=== PATIENT | female | born 1950 | race Caucasian/White ===

== ENCOUNTER 2024-09-16 04:09 | Inpatient (IN) | payer OTHER, BC ==
[2024-09-16 04:21] VITALS: BMI 32.3
[2024-09-16] MEDS ORDERED: ACETAMINOPHEN INJECTION 100 ML ONE (04:49)
[2024-09-16] MEDS ORDERED: FAMOTIDINE 20 MG/50 ML IVPB 20 MG/50 ML MG IVPB ONE (04:50)
[2024-09-16] MEDS ORDERED: ONDANSETRON 4 MG/2 ML VIAL ONE (04:50)
[2024-09-16] MEDS: ACETAMINOPHEN 1000 MG/100 ML BAG IVPB ONE (05:19)
[2024-09-16] MEDS: ONDANSETRON 4 MG/2 ML VIAL IVPUSH ONE (05:20)
[2024-09-16] MEDS: FAMOTIDINE 20 MG/50 ML IVPB 20 MG/50 ML MG IVPB ONE (05:20)
[2024-09-16] MEDS: LACTATED RINGERS SOLUTION 1000 ML INFUS.BAG IV ONE (05:24)
[2024-09-16 05:48] LABS: BASO % 1.2 % (0-2.0); EOS % 0.3 % (0-4.5); HEMATOCRIT 38.8 % (32.4-45.2); HEMOGLOBIN 12.7 GM/dL (10.7-15.3); LYMPH % 14.9 % (8-40); MCH 26.3 pg (25.7-33.7); MCHC 32.8 g/dl (32.0-36.0); MEAN CELL VOLUME 80.4 fl (80-96); MEAN PLT VOLUME 8.3 fl (7.5-11.1); MONO % 7.5 % (3.8-10.2); NEUT % 76.1 % (42.8-82.8); PLATELET COUNT 313 10^3/uL (134-434); RBC 4.83 M/mm3 (3.60-5.2); RDW 14.4 % (11.6-15.6); WHITE BLOOD COUNT 15.1 K/mm3 (4.0-10.0)
[2024-09-16 06:04] LABS: INR 1.08 (0.83-1.09); PROTHROMBIN TIME (PATIENT) 12.2 SEC (9.7-13.0)
[2024-09-16 06:07] LABS: ACTIVATED PTT 28.3 SECONDS (25.2-36.5)
[2024-09-16 06:08] LABS: POTASSIUM 3.9 mmol/L (3.5-5.1)
[2024-09-16 06:10] LABS: BLOOD UREA NITROGEN 27.6 mg/dL (7-18); CALCIUM 11.3 mg/dL (8.5-10.1); MAGNESIUM 1.8 mg/dL (1.8-2.4)
[2024-09-16 06:12] LABS: ALBUMIN 4.3 g/dl (3.4-5.0)
[2024-09-16 06:13] LABS: CREATININE 0.9 mg/dL (0.55-1.3)
[2024-09-16 06:15] LABS: BILIRUBIN,TOTAL 0.9 mg/dL (0.2-1); TOT PROT 8.1 g/dl (6.4-8.2)
[2024-09-16] MEDS ORDERED: METOCLOPRAMIDE HCL INJECTION 10 MG/2 ML VIAL ONE (06:52)
[2024-09-16] MEDS: METOCLOPRAMIDE HCL INJECTION 10 MG/2 ML VIAL IVPB ONE (06:57)
[2024-09-16 08:36] LABS: EPI CELLS 5 /uL (0-25.1); HYALINE CASTS 1 /uL (0-3.1); PH,URINE 5.5 (5.0-8.0); URINE APPEARANCE CLEAR; URINE BACTERIA 9 /uL (0-1359); URINE BILIRUBIN NEGATIVE (NEGATIVE); URINE COLOR YELLOW; URINE GLUCOSE (UA) NEGATIVE (NEGATIVE); URINE KETONE NEGATIVE (NEGATIVE); URINE LEUK ESTERASE TRACE (NEGATIVE); URINE NITRITE NEGATIVE (NEGATIVE); URINE PROTEIN NEGATIVE (NEGATIVE); URINE RBC 11 /uL (0-23.9); URINE UROBILINOGEN 0.2 mg/dL (0.2-1.0); URINE WBC 23 /uL (0-25.8)
[2024-09-16] MEDS ORDERED: ONDANSETRON 4 MG/2 ML VIAL IVPUSH PRN (10:39)
[2024-09-16] MEDS ORDERED: PIPERACILLIN/TAZOB 4.5 GM 4.5 GM/100 ML BAG IVPB ONE (10:49)
[2024-09-16] MEDS ORDERED: ACETAMINOPHEN 500 MG TABLET (FP) ONE (10:58)
[2024-09-16] MEDS ORDERED: PIPERACILLIN/TAZOB 4.5 GM 4.5 GM in DEXTROSE 5%-WATER 100 ML IVPB SCH (11:00)
[2024-09-16] MEDS: LACTATED RINGERS SOLUTION 1,000 ML/1,000 ML INFUS.BAG IV SCH (11:03)
[2024-09-16] MEDS: PIPERACILLIN/TAZOB 4.5 GM 4.5 GM in DEXTROSE 5%-WATER 100 ML IVPB SCH (11:03)
[2024-09-16] MEDS: ACETAMINOPHEN 500 MG TABLET (FP) PO PRN (11:03)
[2024-09-16] MEDS ORDERED: CEFTRIAXONE 1 G/50 ML PREMIX 50 ML IVPB ONE ×2 (11:05→11:10)
[2024-09-16] MEDS: CEFTRIAXONE 1 G/50 ML PREMIX 50 ML IVPB SCH (11:18)
[2024-09-16] MEDS ORDERED: MORPHINE SULFATE 2 MG/ML SYRINGE ONE (12:40)
[2024-09-17 09:32] LABS: HEMATOCRIT 35.6 % (32.4-45.2); HEMOGLOBIN 11.7 GM/dL (10.7-15.3); MCH 26.4 pg (25.7-33.7); MCHC 32.9 g/dl (32.0-36.0); MEAN CELL VOLUME 80.3 fl (80-96); MEAN PLT VOLUME 8.2 fl (7.5-11.1); PLATELET COUNT 283 10^3/uL (134-434); RBC 4.43 M/mm3 (3.60-5.2); RDW 14.2 % (11.6-15.6); WHITE BLOOD COUNT 12.2 K/mm3 (4.0-10.0)
[2024-09-17 09:46] LABS: POTASSIUM 3.8 mmol/L (3.5-5.1)
[2024-09-17 09:49] LABS: CALCIUM 10.2 mg/dL (8.5-10.1); MAGNESIUM 1.6 mg/dL (1.8-2.4)
[2024-09-17 09:50] LABS: BLOOD UREA NITROGEN 11.1 mg/dL (7-18)
[2024-09-17 09:53] LABS: CREATININE 0.9 mg/dL (0.55-1.3); PHOSPHOROUS 2.7 mg/dL (2.5-4.9)
[2024-09-17] MEDS: ACETAMINOPHEN 1000 MG/100 ML BAG IVPB PRN (14:30)
[2024-09-17] MEDS: MAGNESIUM 1GM/D5W 100ML - 100 ML IVPB IVPB ONE (20:15)
[2024-09-18 07:38] LABS: HEMATOCRIT 34.3 % (32.4-45.2); HEMOGLOBIN 11.2 GM/dL (10.7-15.3); MCH 26.5 pg (25.7-33.7); MCHC 32.6 g/dl (32.0-36.0); MEAN PLT VOLUME 8.2 fl (7.5-11.1); PLATELET COUNT 255 10^3/uL (134-434); RBC 4.23 M/mm3 (3.60-5.2); RDW 14.1 % (11.6-15.6); WHITE BLOOD COUNT 10.2 K/mm3 (4.0-10.0)
[2024-09-18 07:56] LABS: MAGNESIUM 1.9 mg/dL (1.8-2.4)
[2024-09-18 08:00] LABS: PHOSPHOROUS 2.8 mg/dL (2.5-4.9)
[2024-09-18 09:10] VITALS: BP 132/59; PULSE 82; RESP 17; TEMP 98.1
[2024-09-18] MEDS: MAGNESIUM OXIDE 400 MG TABLET (FP) PO ONE (10:13)
[2024-09-18] MEDS ORDERED: metroNIDAZOLE 250 MG TABLET PO SCH (14:00)
== END 2024-09-18 11:37 | disposition home or self-care (01) | DRG 392 ==
LOC: JER 04:09 → JERBED 10:02 → UNDODISIN 11:26 → J8W 13:16
PROVIDERS: ADMIT Internal Medicine; ATTEND Nurse Practitioner Acute Care
DX: A09 Infectious gastroenteritis and colitis, unspecified (principal); K92.1 Melena; E11.9 Type 2 diabetes mellitus without complications; I10 Essential (primary) hypertension; K76.89 Other specified diseases of liver; E78.5 Hyperlipidemia, unspecified; K21.9 Gastro-esophageal reflux disease without esophagitis; K57.90 Diverticulosis of intestine, part unspecified, without perforation or abscess without bleeding
CPT/HCPCS: 36415; 71045-TC-FY; 74177-TC; 80048; 80053; 81003; 82962; 83690; 83735; 84100; 84484; 85025; 85027; 85610; 85730; 86850; 86900; 86901; 87045; 87046; 87086; 93005; 93010; 99285-25; J0131